=== PATIENT | male | born 1980 | race Caucasian/White ===

== ENCOUNTER 2020-06-20 00:50 | Emergency (ER) | payer MEDICAID ==
[~2020-06-20] VITALS: Ht 177.8 cm; Wt 81.8 kg
[2020-06-20 01:30] VITALS: BP 136/78
[2020-06-20] MEDS ORDERED: IBUPROFEN 600 MG TABLET PO ONE (02:45)
[2020-06-20] MEDS ORDERED: ACETAMINOPHEN/CODEINE 300-30 MG TABLET PO ONE (02:45)
[2020-06-20] MEDS ORDERED: AMOX TR/POT CLAV 875 MG/125 MG TABLET PO ONE (02:45)
== END 2020-06-20 03:35 | disposition home or self-care (01) ==
LOC: EMS 00:54
DX: K05.10 Chronic gingivitis, plaque induced (principal)
CPT/HCPCS: 99284; Z7502; Z7610